=== PATIENT | female | born 1985 | race Caucasian/White ===

== ENCOUNTER 2018-10-04 22:44 | Emergency (ER) | payer MEDICAID ==
[2018-10-05] MEDS: DEXAMETHASONE 10 MG/ML 1 ML INJ IM (00:02)
[2018-10-05] MEDS: DIPHENHYDRAMINE 2.5 MG/ML 5ML CUP PO (00:02)
== END 2018-10-05 00:37 | disposition home or self-care (01) ==
LOC: FTE 22:44
DX: L50.9 Urticaria, unspecified (principal)
CPT/HCPCS: 96372; 99284-25